=== PATIENT | male | born 1970 | race Caucasian/White ===

== ENCOUNTER 2016-11-02 20:40 | Emergency (ER) | payer SELFPAY ==
[~2016-11-02] VITALS: Ht 175.3 cm; Wt 83.0 kg
[~2016-11-02 20:40] MED LIST: MOTR200T PO
[2016-11-02 20:50] VITALS: BP 121/82; PULSE 90; RESP 16; TEMP 98.9; O2SAT 96
--- NOTE | 2016-11-02 21:04 | PD ---
HPI Chief Complaint: Musculoskeletal Complaint Time Seen by Provider: 21:03 Travel History International Travel<30 days: No Contact w/Intl Traveler<30days: No History of Present Illness HPI Patient is a 46-year-old male presenting to the emergency department for evaluation of left fifth toe pain. Patient states he kicked the couch approximately 30 minutes prior to arrival. He states is not painful but his toe normally does not point to the side. Patient has no other complaints at this time. PFSH Past Medical History Diminished Hearing: No GERD: Yes Social History Alcohol Use: No Tobacco Use: Yes (1 PPD) Substance Use: No Allergies-Medications (Allergen,Severity, Reaction): Coded Allergies: No Known Allergies (Verified , 11/02/16) Reported Meds & Prescriptions Reported Meds & Active Scripts Active Ibuprofen 800 Mg Tab 800 Mg PO Q8H PRN 10 Days Review of Systems Except as stated in HPI: all other systems reviewed are Neg Musculoskeletal: Positive: Other (deformity) Physical Exam Narrative GENERAL: Well-nourished, well-developed patient. SKIN: Warm and dry. HEAD: Normocephalic. EYES: No scleral icterus. No injection or drainage. NECK: Supple, trachea midline. No JVD or lymphadenopathy. CARDIOVASCULAR: Regular rate and rhythm without murmurs, gallops, or rubs. RESPIRATORY: Breath sounds equal bilaterally. No accessory muscle use. GASTROINTESTINAL: Abdomen soft, non-tender, nondistended. MUSCULOSKELETAL: No cyanosis, or edema. Obvious deformity and left fifth toe with lateral deviation. Brisk capillary refill. Mild ecchymosis noted on the medial aspect of the left fifth toe. Positive pedal pulse. BACK: Nontender without obvious deformity. No CVA tenderness. Data Data Last Documented VS Vital Signs Date Time Temp Pulse Resp B/P Pulse Ox O2 Delivery O2 Flow Rate FiO2 11/02/16 21:09 11/02/16 20:50 98.9 90 16 96 Orders Toe (Min 2vws) (11/02/16 ) Bupivacaine Pf 0.5% Inj (Marcaine Pf 0.5 (11/02/16 22:00) Shoe Post Op (11/02/16 ) MDM Medical Decision Making Medical Screen Exam Complete: Yes Emergency Medical Condition: Yes Interpretation(s) Last Impressions Toe X-Ray 11/02/16 0000 Signed Impressions: Service Date/Time: Wednesday, November 02, 2016 21:24 - CONCLUSION: Comminuted midshaft fracture of the little toe proximal phalanx with dorsolateral angulation deformity. Wolfgang Bonilla MD Vital Signs Date Time Temp Pulse Resp B/P Pulse Ox O2 Delivery O2 Flow Rate FiO2 11/02/16 20:50 98.9 90 16 121/82 96 Differential Diagnosis Fracture versus dislocation versus sprain versus strain versus other Narrative Course Patient is a 46-year-old male presenting to the emergency department for evaluation of left fifth toe deformity. Patient is neurovascularly intact. Imaging ordered. X-ray of the left fourth toe shows Comminuted midshaft fracture of the little toe proximal phalanx with dorsolateral angulation deformity. Discussed with my attending physician, toe was realigned, and darren taped to the left fourth toe. Patient is neurovascularly intact. He denied any pain. He was advised to follow-up with a participant administrator for further evaluation and management. Patient verbalized understanding of follow-up instructions. He was advised come back to emergency department for any new or worsening symptoms. Patient is stable for discharge. Procedures Procedure Narrative Patient's left fifth toe was anesthetized with 0.5% bupivacaine. After adequate anesthesia was obtained, toe was manually reduced, and then darren taped to the fourth toe. Patient was neurovascularly intact with a positive pedal pulses and brisk capillary refill in the left fifth toe after the toe was realigned. Diagnosis Primary Impression: Fracture of fifth toe, left, closed Qualified Code: S92.502A - Fracture of fifth toe, left, closed, initial encounter Referrals: Entry Level Recruiter 3 days Patient Instructions: General Instructions, Toe Fracture (ED) Additional Instructions: Follow-up with a participant administrator Return to emergency department for any new or worsening symptoms Keep toes darren taped together with gauze in between to print skin breakdown Med/Other Pt SpecificInfo: Prescription(s) given Scripts Ibuprofen 800 Mg [id number] Mg PO Q8H PRN (Pain/Inflammation) 10 Days Ref 0 Prov:Xiomara Pennington 11/02/16 Disposition: 01 DISCHARGE HOME Condition: Stable Xiomara Pennington Nov 02, 2016 21:04
[2016-11-02] MEDS ORDERED: BUPIVACAINE HCL PF 0.5% 10 ML VIAL INFIL ONE (22:00)
--- NOTE | 2016-11-02 22:05 | RADHPO ---
EXAM DATE/TIME: 11/02/2016 21:24 [facility] COMPARISON: No previous studies available for comparison. INDICATIONS : Left foot, fifth toe pain after running into couch. MEDICAL HISTORY : None. SURGICAL HISTORY : Left foot, fifth toe tendon surgery ENCOUNTER: Initial ACUITY: 1 day PAIN SCORE: 1/10 LOCATION: Left foot FINDINGS: There is a comminuted acute oblique fracture of the midshaft of the little toe proximal phalanx with moderate lateral and dorsal angulation deformity. Articular surfaces are intact. There are no subluxa tions. Other bones of the left foot are intact and normally aligned. CONCLUSION: Comminuted midshaft fracture of the little toe proximal phalanx with dorsolateral angulation deformit yKayce Bonilla MD on November 02, 2016 at 22:02 Board Certified Radiologist. This report was verified electronically.
[2016-11-02] MEDS ORDERED: IBUP800T23 PO (22:06)
== END 2016-11-02 22:17 | disposition home or self-care (01) ==
LOC: PHEFT 20:40
DX: S92.512A Displaced fracture of proximal phalanx of left lesser toe(s), initial encounter for closed fracture (principal); W22.03XA Walked into furniture, initial encounter
CPT/HCPCS: 28515; 73660; 99283; L3260